=== PATIENT | female | born 1995 | race Caucasian/White ===

== ENCOUNTER 2021-02-25 16:40 | Inpatient (IN) | payer OTHER ==
[~2021-02-25] VITALS: Ht 157.5 cm; Wt 59.9 kg
[~2021-02-25 16:40] MED LIST: CIPRO500 MG PO; IBUPROFEN800 MG PO; PYRIDIUM200 MG PO; ZOFRAN 4 MG TAB4 MG PO
[2021-02-25 18:00] LABS: HEMOGLOBIN 11.9 gm/dl (12.3-15.3); RED BLOOD COUNT 4.17 M/UL (4.00-5.10); WHITE BLOOD COUNT 11.7 K/UL (4.5-11.0)
[2021-02-26] MEDS ORDERED: IBUPROFEN600 MG PO (12:52)
[2021-02-26] MEDS ORDERED: DOCUSATE SODIU100 MG PO (12:52)
== END 2021-02-28 13:52 | disposition home or self-care (01) | DRG 807 ==
LOC: GENOP 16:40 → OB 17:20
PROVIDERS: Obstetrics & Gynecology; ADMIT Obstetrics & Gynecology
PROC: 10E0XZZ Delivery of Products of Conception, External Approach (ICD-10-PCS; principal; 2021-02-26)
PROC: 10907ZC Drainage of Amniotic Fluid, Therapeutic from Products of Conception, Via Natural or Artificial Opening (ICD-10-PCS; 2021-02-26)
PROC: 3E033VJ Introduction of Other Hormone into Peripheral Vein, Percutaneous Approach (ICD-10-PCS; 2021-02-26)
DX: O99.344 Other mental disorders complicating childbirth (principal); Z37.0 Single live birth; O24.92 Unspecified diabetes mellitus in childbirth; F41.9 Anxiety disorder, unspecified; O16.4 Unspecified maternal hypertension, complicating childbirth; Z20.822 Contact with and (suspected) exposure to COVID-19; F43.10 Post-traumatic stress disorder, unspecified; Z3A.38 38 weeks gestation of pregnancy
CPT/HCPCS: 51702; 81001; 82800; 85014; 85018; 85025; 90715; J2590; J7120

== ENCOUNTER 2021-03-24 14:29 | Emergency (ER) | payer OTHER ==
[~2021-03-24 14:29] MED LIST changes: +DOCUSATE SODIU100 MG PO; +IBUPROFEN600 MG PO
== END 2021-03-24 17:40 | disposition home or self-care (01) ==
LOC: ER1 14:29
DX: J02.9 Acute pharyngitis, unspecified (principal); R05.9 Cough, unspecified; Z20.822 Contact with and (suspected) exposure to COVID-19; F17.200 Nicotine dependence, unspecified, uncomplicated
CPT/HCPCS: 0240U; 87081; 87880; 99283

== ENCOUNTER 2021-04-11 18:19 | Emergency (ER) | payer OTHER ==
[2021-04-11] MEDS ORDERED: ONDANSETRON ODT4 MG SL (21:37)
== END 2021-04-11 21:56 | disposition home or self-care (01) ==
LOC: ER1 18:19
DX: B83.9 Helminthiasis, unspecified (principal); F17.290 Nicotine dependence, other tobacco product, uncomplicated
CPT/HCPCS: 99283